=== PATIENT | female | born 1990 | race African-American/Black ===

== ENCOUNTER 2019-11-15 14:22 | Emergency (ER) | payer SELFPAY ==
[2019-11-15] MEDS ORDERED: Lidocaine 1% w/Epinephrine 1:100K 20 ML VIAL ONE (16:12)
[2019-11-15] MEDS ORDERED: Midazolam HCl 2 mg/2 ml Vial ONE (16:19)
[2019-11-15] MEDS ORDERED: metroNIDAZOLE 500 MG/100 ML BAG ONE (16:35)
== END 2019-11-15 19:35 | disposition home or self-care (01) ==
LOC: ERS 14:22
DX: L05.91 Pilonidal cyst without abscess (principal); J45.909 Unspecified asthma, uncomplicated; F17.210 Nicotine dependence, cigarettes, uncomplicated; Z79.51 Long term (current) use of inhaled steroids
CPT/HCPCS: 10080; 87070; 87205; 96361; 96365; 96375; J2250

== ENCOUNTER 2020-03-22 23:29 | Emergency (ER) | payer SELFPAY ==
[2020-03-22] MEDS ORDERED: Ondansetron ODT 4 MG TAB ONE (23:50)
== END 2020-03-23 00:38 | disposition home or self-care (01) ==
LOC: ERS 23:29
DX: R11.2 Nausea with vomiting, unspecified (principal); J45.909 Unspecified asthma, uncomplicated; F17.210 Nicotine dependence, cigarettes, uncomplicated
CPT/HCPCS: 99283; Q0162

== ENCOUNTER 2022-12-31 10:02 | Emergency (ER) | payer SELFPAY | END 2022-12-31 12:20 | disposition home or self-care (01) | LOC: ERS 10:02 | DX: Z48.817 Encounter for surgical aftercare following surgery on the skin and subcutaneous tissue (principal) ==